=== PATIENT | male | born 1975 | race Hispanic/Latino ===

== ENCOUNTER 2022-12-09 10:40 | Emergency (ER) | payer OTHER ==
[~2022-12-09] VITALS: Ht 170.2 cm; Wt 72.6 kg
[2022-12-09 11:31] LABS: BASOPHILS % (AUTO) 1.4 % (0.0-5.0); LYMPHOCYTES % (AUTO) 22.5 % (21.0-51.0); MEAN CORPUSCULAR HEMOGLOBIN 13.5 pg (27.0-33.0); MEAN CORPUSCULAR VOLUME 56.2 fL (79-99); MONOCYTES % (AUTO) 10.3 % (3.0-13.0); NEUTROPHILS % (AUTO) 64.5 % (40.0-77.0); NUCLEATED RED BLOOD CELLS 0.3 % (0.0-0.19); PLATELET COUNT (AUTO) 571 K/uL (130-400); RED BLOOD CELL COUNT(AUTO) 3.49 MIL/uL (4.50-6.20); RED CELL DISTRIBUTION WIDTH 25.2 % (11.0-15.5); WHITE BLOOD COUNT (AUTO) 8.8 K/uL (4.8-10.8)
[2022-12-09 11:41] LABS: HEMATOCRIT 19.6 % (42-54)
[2022-12-09 11:47] LABS: INR 1.01 (0.85-1.15); PROTHROMBIN TIME 11.7 SEC (9.6-11.6)
[2022-12-09 11:49] LABS: CREATININE 0.7 mg/dL (0.5-1.5); POTASSIUM 3.3 mmol/L (3.5-5.1)
[2022-12-09 11:53] LABS: ALBUMIN 3.6 g/dL (3.5-5.0); TOTAL PROTEIN, SERUM 6.8 g/dL (6.0-8.3)
[2022-12-09] MEDS ORDERED: KCL 20 MEQ ERTAB PO ONE (17:00)
[2022-12-09 17:16] LABS: APPEARANCE,URINE CLEAR (CLEAR); BILIRUBIN,URINE NEGATIVE (NEGATIVE); COLOR,URINE LIGHT-YELLOW (YELLOW); GLUCOSE, URINE (UA) NEGATIVE (NEGATIVE); KETONES,URINE NEGATIVE (NEGATIVE); LEUKOCYTE ESTERASE ,URINE NEGATIVE Leu/uL (NEGATIVE); NITRATE,URINE NEGATIVE (NEGATIVE); OCCULT BLOOD,URINE NEGATIVE (NEGATIVE); PROTEIN,URINE NEGATIVE (NEGATIVE); UROBILINOGEN,URINE 0.2 mg/dL (0.2-1.0)
[2022-12-09 17:17] LABS: MUCUS,URINE RARE LPF (None Seen); WBC,URINE 0-1 /HPF (0-1)
[2022-12-09] MEDS ORDERED: FERR324T4 PO (17:57)
[2022-12-09 17:59] VITALS: BP 129/77; PULSE 69; RESP 18; O2SAT 100
== END 2022-12-09 18:40 | disposition home or self-care (01) ==
LOC: EDH 10:40
DX: D64.9 Anemia, unspecified (principal); I10 Essential (primary) hypertension
CPT/HCPCS: 99285; 36430; 82270; 80053; 85025; 85610; 86850; 86900; 86901; 86923; 81001; 36415; 85007; P9016 ×2